=== PATIENT | male | born 1980 | race Two or more races ===

== ENCOUNTER 2022-02-13 11:45 | Emergency (ER) | payer OTHER ==
[~2022-02-13] VITALS: Ht 172.7 cm; Wt 113.6 kg
[2022-02-13 12:35] VITALS: BP 169/103
[2022-02-13] MEDS ORDERED: LABETALOL HCL 5 MG/ML 4ML SYRINGE IV ONE (12:45)
[2022-02-13 13:17] LABS: Basophils # (auto) 0 10 ^3/uL (0-0.2); Basophils % (auto) 0.5 % (0.0-2.0); Eosinophils # (auto) 0.1 10 ^3/uL (0-0.8); Eosinophils % (auto) 1.3 % (0.0-7.0); Hematocrit 45.8 % (41.0-53.0); Hemoglobin 15.2 g/dL (13.5-17.5); Lymphocytes # (auto) 1.5 10 ^3/uL (0.4-5.4); Lymphocytes % (auto) 18.4 % (10.0-50.0); Mean Corpuscular Hemoglobin 28.2 pg (28.0-32.0); Mean Corpuscular Hgb Conc. 33.1 g/dL (32.0-36.0); Mean Corpuscular Volume 85.2 fL (80.0-100.0); Monocytes # (auto) 0.4 10 ^3/uL (0-1.3); Monocytes % (auto) 5.1 % (0.0-12.0); Neutrophils # (auto) 6.1 10 ^3/uL (1.6-8.6); Neutrophils % (auto) 74.7 % (37.0-80.0); Nucleated Red Blood Cells % 0.1 %; Red Blood Cells 5.37 10^6/uL (4.5-5.90); Red Cell Distribution Width 12.9 % (11.8-14.3); White Blood Cell 8.2 10^3/uL (4.4-10.8)
[2022-02-13 13:29] LABS: Albumin 3.9 g/dL (3.4-5.0); Calcium 8.5 mg/dL (8.5-10.1); Potassium 3.1 mmol/L (3.5-5.1)
[2022-02-13 13:30] LABS: BUN/Creatinine Ratio 17.1
[2022-02-13 13:33] LABS: Bilirubin, Total 0.9 mg/dL (0.2-1.0); Total Protein 7.1 g/dL (6.4-8.2)
== END 2022-02-13 14:25 | disposition home or self-care (01) ==
LOC: ER 11:45 → EDBD 11:45 → ER 14:15
DX: T67.5XXA Heat exhaustion, unspecified, initial encounter (principal); I10 Essential (primary) hypertension; X58.XXXA Exposure to other specified factors, initial encounter
CPT/HCPCS: 36415; 71045; 80053; 83880; 84484; 85025; 93005; 96374; 99285; J3490

== ENCOUNTER 2024-08-11 08:26 | Inpatient (IN) | payer OTHER ==
[~2024-08-11] VITALS: Ht 172.7 cm; Wt 111.0 kg
--- NOTE | 2024-08-11 08:42 | ED.PDOC ---
History of Present Illness HPI Comments 43-year-old male came to the ER complaining of chest pain which started this morning 2:30 a.m.. He was sleeping when he started to the symptoms. Chest pain in the right side radiating to the right shoulder. He does history of hypotension CVA in 2017. Does take lisinopril amlodipine for his blood pressure. Blood pressure arrival was 176/115. Denies any past surgical history. Denies any other symptoms. Chief Complaint: Chest Pain Time Seen by MD: 08:38 Primary Care Provider: ROBYN Reviewed Notes: Nurses Notes, Medications, Allergies Allergies: Coded Allergies: NO KNOWN ALLERGIES (Unverified , 02/13/22) Home Meds Reported Medications Amlodipine Besylate (Amlodipine Besylate) 10 Mg Tab, 1 DAILY 08/11/24 Information Source: Patient Mode of Arrival: Ambulatory Severity: Moderate Timing: Hours Duration: Since onset Past Medical History PAST MEDICAL HISTORY: HTN Surgical History: Unknown Family History Family History: Unknown Social History Smoker: Unknown Alcohol: Unknown Drugs: Unknown Lives In: Unknown Constitutional: denies: chills, diaphoresis, fatigue, fever, malaise, sweats, weakness, others EENTM: denies: blurred vision, double vision, ear bleeding, ear discharge, ear drainage, ear pain, ear ringing, eye pain, eye redness, hearing loss, mouth pain, mouth swelling, nasal discharge, nose bleeding, nose congestion, nose pain, photophobia, tearing, throat pain, throat swelling, voice changes, others Respiratory: denies: cough, hemoptysis, orthopnea, SOB at rest, shortness of breath, SOB with excertion, stridor, wheezing, others Cardiovascular: reports: chest pain; denies: dizzy spells, diaphoresis, Dyspnea on exertion, edema, irregular heart beat, left arm pain, lightheadedness, palpitations, PND, syncope, others Gastrointestinal: denies: abdomen distended, abdominal pain, blood streaked bowels, constipated, diarrhea, dysphagia, difficulty swallowing, hematemesis, melena, nausea, poor appetite, poor fluid intake, rectal bleeding, rectal pain, vomiting, others Genitourinary: denies: burning, dysuria, flank pain, frequency, hematuria, incontinence, penile discharge, penile sore, pain, testicle pain, testicle swelling, urgency, others Neurological: denies: dizziness, fainting, headache, left sided numbness, left sided weakness, numbness, paresthesia, pre-existing deficit, right sided numbness, right sided weakness, seizure, speech problems, tingling, tremors, weakness, others Musculoskeletal: denies: back pain, gout, joint pain, joint swelling, muscle pain, muscle stiffness, neck pain, others Integumetry: denies: bruises, change in color, change in hair/nails, dryness, laceration, lesions, lumps, rash, wounds, others Allergic/Immunocompromised: denies: Difficulty Healing, Frequent Infections, Hives, Itching, others Hematologic/Lymphatic: denies: anemia, blood clots, easy bleeding, easy bruising, swollen glands, others Endocrine: denies: excessive hunger, excessive sweating, excessive thirst, excessive urination, flushing, intolerance to cold, intolerance to heat, unexplained weight gain, unexplained weight loss, others Psychiatric: denies: anxiety, bipolar disorder, depression, hopeless, panic disorder, schizophrenia, sleepless, suicidal, others Physical Exam General Appearance: Moderate Distress HEENT: Normal ENT Inspection, Pharynx Normal, TMs Normal Neck: Full Range of Motion, Non-Tender, Normal, Normal Inspection Respiratory: Chest Non-Tender, Lungs Clear, No Accessory Muscle Use, No Respiratory Distress, Normal Breath Sounds Cardiovascular: No Edema, No JVD, No Murmur, No Gallop, Normal Peripheral Pulses, Regular Rate/Rhythm Breast Exam: Deferred Gastrointestinal: No Organomegaly, Non Tender, No Pulsatile Mass, Normal Bowel Sounds, Soft Genitalia: Deferred Pelvic: Deferred Rectal: Deferred Extremities: No calf tenderness, Normal capillary refill, Normal inspection, Normal range of motion, Non-tender, No pedal edema Musculoskeletal : Apperance: Normal Neurologic: Alert, shoes hand sewer II-XII nml as Tested, No Motor Deficits, Normal Affect, Normal Mood, No Sensory Deficits Cerebellar Function: Normal Reflexes: Normal Skin: Dry, Normal Color, Warm Peripheral Pulses: 3+ Radial (R), 3+ Radial (L) Lymphatic: No Adenopathy Was a procedure done? Was a procedure done?: No Differential Dx Considerations may include: Stress induced Electrolyte imbalance X-Ray, Labs, Meds, VS Vital Signs Date Time Temp Pulse Resp B/P (MAP) Pulse Ox O2 Delivery O2 Flow Rate FiO2 2/28/25 12:47 74 16 95 Room Air 08/11/24 12:47 97.8 74 16 152/103 (119) 95 97.8 08/11/24 11:59 79 08/11/24 11:58 98.1 81 22 143/94 (110) 92 98.1 08/11/24 09:06 176/115 08/11/24 08:36 98.1 70 20 176/115 (135) 97 08/11/24 08:31 69 Lab Test 08/11/24 11:35 08/11/24 09:40 08/11/24 08:50 08/11/24 08:39 Range/Units Magnesium Level 2.3 1.6-2.6 mg/dL Troponin I High Sensitivity < 3 L < 3 L < 3 L </=54 ng/L Triglycerides Level 159 H < 150 mg/dL Cholesterol Level 178 < 200 mg/dL LDL Cholesterol 116 H < 100 mg/dL HDL Cholesterol 47 40-59 mg/dL Thyroid Stimulating Hormone (TSH) Pending Urine Color Pending Urine Clarity Pending Urine pH Pending Urine Specific [place] Pending Urine Protein Pending Urine Ketones Pending Urine Blood Pending Urine Nitrite Pending Urine Bilirubin Pending Urine Urobilinogen Pending Urine Leukocyte Esterase Pending Urine RBC Pending Urine Microscopic WBC Pending Urine Squamous Epithelial Cells Pending Urine Bacteria Pending Urine Glucose Pending Urine Opiates Screen Pending Urine Fentanyl Screen Pending Urine Barbiturates Screen Pending Urine Phencyclidine Screen Pending Urine Amphetamines Screen Pending Urine Benzodiazepines Screen Pending Urine Cocaine Screen Pending Urine Cannabinoids Screen Pending White Blood Count 6.2 4.4-10.8 10^3/uL Red Blood Count 5.86 4.5-5.90 10^6/uL Hemoglobin 17.3 13.5-17.5 g/dL Hematocrit 50.2 41.0-53.0 % Mean Corpuscular Volume 85.7 80.0-100.0 fL Mean Corpuscular Hemoglobin 29.6 28.0-32.0 pg Mean Corpuscular Hemoglobin Concent 34.5 32.0-36.0 g/dL Red Cell Distribution Width 12.8 11.8-14.3 % Platelet Count 231 140-450 10^3/uL Mean Platelet Volume 7.6 6.9-10.8 fL Neutrophils (%) (Auto) 68.8 37.0-80.0 % Lymphocytes (%) (Auto) 24.9 10.0-50.0 % Monocytes (%) (Auto) 4.4 0.0-12.0 % Eosinophils (%) (Auto) 1.4 0.0-7.0 % Basophils (%) (Auto) 0.5 0.0-2.0 % Neutrophils # (Auto) 4.3 1.6-8.6 10 ^3/uL Lymphocytes # (Auto) 1.5 0.4-5.4 10 ^3/uL Monocytes # (Auto) 0.3 0-1.3 10 ^3/uL Eosinophils # (Auto) 0.1 0-0.8 10 ^3/uL Basophils # (Auto) 0 0-0.2 10 ^3/uL Nucleated Red Blood Cells 0.7 % Sodium Level 140 136-145 mmol/L Potassium Level 3.4 L 3.5-5.1 mmol/L Chloride Level 104 98-107 mmol/L Carbon Dioxide Level 27 20-31 mmol/L Anion Gap 9 5-15 Blood Urea Nitrogen 11 9-23 mg/dL Creatinine 0.93 0.700-1.30 mg/dL Glomerular Filtration Rate Calc 104 >90 mL/min BUN/Creatinine Ratio 11.8 10.0-20.0 Serum Glucose 100 74-106 mg/dL Hemoglobin A1c 5.0 <5.7 % A1C Calcium Level 10.3 8.7-10.4 mg/dL Current Medications Medications (Trade) Dose Ordered Sig/Carlos Alberto Route Start Time Stop Time Status Last Admin Lorazepam (Ativan Tablet) 1 mg ONCE ONCE PO 08/11/24 08:45 08/11/24 08:46 DC 08/11/24 09:07 Aspirin 325 mg ONCE ONCE PO 08/11/24 08:45 08/11/24 08:46 DC 08/11/24 09:06 Amlodipine Besylate (Norvasc Tablet) 5 mg ONCE ONCE PO 08/11/24 09:00 08/11/24 09:01 DC 08/11/24 09:06 Potassium Chloride (Klor-Con Tablet) 20 meq ONCE ONCE PO 08/11/24 13:30 08/11/24 13:44 DC 08/11/24 13:53 Patient alert. Complaining of chest pain. Blood pressure elevated. Saturation pristine on room air. Was given amlodipine. EKG reviewed does not show any acute changes. Denies perspiration. Reviewed his history. Explained to the patient. Continue monitoring. [place] approved inpatient admission [id number]. Time of 1ST Reevaluation: 08:40 Reevaluation 1ST: Unchanged Patient Education/Counseling: Diagnosis, Treatment, Prognosis Family Education/Counseling: No Family Present Departure 1 Departure Time of Disposition: 08:41 Impression: Primary Impression: Chest pain of unknown etiology Additional Impression: Hypertensive emergency Disposition: ADMITTED INPATIENT Admit to: Med Surg Condition: Guarded Critical Care Note Critical Care Time?: Yes (45 min-critical care time only) Critical care comment: Extremely high blood pressure Stability Stability form required: No Heart Score Heart Score: Heart Score Response (Comments) Value History Slightly Suspicious 0 EKG Normal 0 Age <45 0 Risk Factors 1 or 2 risk factors 1 Troponin Normal limit 0 Total 1 PHOEBE PITT MD Aug 11, 2024 08:42
[2024-08-11] MEDS: amLODIPine BESYLATE 5 MG TAB PO ONE (09:06)
[2024-08-11] MEDS: ASPirin 325 MG TAB PO ONE (09:06)
[2024-08-11 09:07] LABS: Basophils # (auto) 0 10 ^3/uL (0-0.2); Basophils % (auto) 0.5 % (0.0-2.0); Eosinophils # (auto) 0.1 10 ^3/uL (0-0.8); Eosinophils % (auto) 1.4 % (0.0-7.0); Hematocrit 50.2 % (41.0-53.0); Hemoglobin 17.3 g/dL (13.5-17.5); Lymphocytes # (auto) 1.5 10 ^3/uL (0.4-5.4); Lymphocytes % (auto) 24.9 % (10.0-50.0); Mean Corpuscular Hemoglobin 29.6 pg (28.0-32.0); Mean Corpuscular Hgb Conc. 34.5 g/dL (32.0-36.0); Mean Corpuscular Volume 85.7 fL (80.0-100.0); Monocytes # (auto) 0.3 10 ^3/uL (0-1.3); Monocytes % (auto) 4.4 % (0.0-12.0); Neutrophils # (auto) 4.3 10 ^3/uL (1.6-8.6); Neutrophils % (auto) 68.8 % (37.0-80.0); Nucleated Red Blood Cells % 0.7 %; Platelet Count (auto) 231 10^3/uL (140-450); Red Blood Cells 5.86 10^6/uL (4.5-5.90); Red Cell Distribution Width 12.8 % (11.8-14.3); White Blood Cell 6.2 10^3/uL (4.4-10.8)
[2024-08-11] MEDS: LORazepam 0.5 MG TAB PO ONE (09:07)
[2024-08-11 09:11] LABS: Chloride 104 mmol/L (98-107); Sodium 140 mmol/L (136-145)
[2024-08-11 09:12] LABS: Anion Gap 9 (5-15); Carbon Dioxide 27 mmol/L (20-31)
[2024-08-11 09:13] LABS: Calcium 10.3 mg/dL (8.7-10.4)
[2024-08-11 09:17] LABS: BUN/Creatinine Ratio 11.8 (10.0-20.0); Blood Urea Nitrogen 11 mg/dL (9-23); Glucose 100 mg/dL (74-106)
[2024-08-11 09:18] LABS: Potassium 3.4 mmol/L (3.5-5.1)
[2024-08-11] MEDS: POTASSIUM CHL 20 Meq TABLET PO ONE (13:53)
[2024-08-11] MEDS ORDERED: NITROGLYCERIN 0.4 MG SL TAB SL PRN ×2 (14:45)
[2024-08-11] MEDS ORDERED: MORPHINE SULFATE INJ 2 MG/ml SYRG IV PRN (14:45)
[2024-08-11] MEDS ORDERED: ONDANSETRON HCL 4 MG/2 ML VIAL IV PRN (14:45)
[2024-08-11] MEDS ORDERED: MORPHINE SULFATE 4 MG/ML SYR/VIAL IV PRN (14:45)
[2024-08-11] MEDS ORDERED: ACETAMINOPHEN 325 MG TAB PO PRN (14:45)
[2024-08-11] MEDS ORDERED: AMLO1TAB23 (14:45)
--- NOTE | 2024-08-11 14:47 | DVHHP2 ---
History of Present Illness Reason for Visit: Chest pain History of Present Illness Kush Mc is a 43-year-old male with past medical history of hypertension, CVA in 2017 with no deficits, right shoulder rotator cuff surgery, and left knee meniscus surgery who presents to the ED with chest pain that radiates over to his right shoulder. Patient reports that the pain is in his right chest area with pain being dull 5/10 and constant. Patient denies any recent trauma or injury, recent illnesses, recent sick contacts, fever, chills, lightheadedness, dizziness, shortness of breath, abdominal pain, nausea, vomiting, and diarrhea. Patient reports that there are no triggering or relieving factors. Cardiovascular: HTN [employer]: CVA Past Surgical History: Other (Right shoulder rotator cuff surgery and left knee meniscus surgery) Family History: DM, Other (Mom with diabetes) Smoke: No ALCOHOL: none Drugs: None Lives: with Family Domestic Violence: Neg Review of Systems Cardiovascular: Chest Pain Musculoskeletal: shoulder pain Allergies: Coded Allergies: NO KNOWN ALLERGIES (Unverified , 02/13/22) Exam Vital Signs Vital Signs Date Time Temp Pulse Resp B/P (MAP) Pulse Ox O2 Delivery O2 Flow Rate FiO2 08/11/24 12:47 74 16 95 Room Air 08/11/24 12:47 97.8 152/103 (119) 97.8 General Appearance: Alert, Oriented X3, Cooperative, No acute distress HEENT: Atraumatic, PERRLA, EOMI, Mucous membr. moist/pink Respiratory: Normal air movement Cardiovascular: Regular rate, Normal S1, Normal S2, No murmurs Abdominal: Normal bowel sounds, Soft, No tenderness, No hepatospenomegaly, No masses Extremities: No clubbing, No cyanosis, No edema, Normal pulses, No tenderness/swelling Skin: No rashes, No breakdown, No significant lesion Neuro: Normal gait, Normal speech, Strength at 5/5 X4 ext, Normal tone, Sensation intact Psych/Mental Status: Mental status NL, Mood NL Labs/Xrays Labs Test 08/11/24 11:35 08/11/24 08:39 Range/Units Troponin I High Sensitivity < 3 L </=54 ng/L White Blood Count 6.2 4.4-10.8 10^3/uL Red Blood Count 5.86 4.5-5.90 10^6/uL Hemoglobin 17.3 13.5-17.5 g/dL Hematocrit 50.2 41.0-53.0 % Mean Corpuscular Volume 85.7 80.0-100.0 fL Mean Corpuscular Hemoglobin 29.6 28.0-32.0 pg Mean Corpuscular Hemoglobin Concent 34.5 32.0-36.0 g/dL Red Cell Distribution Width 12.8 11.8-14.3 % Platelet Count 231 140-450 10^3/uL Mean Platelet Volume 7.6 6.9-10.8 fL Neutrophils (%) (Auto) 68.8 37.0-80.0 % Lymphocytes (%) (Auto) 24.9 10.0-50.0 % Monocytes (%) (Auto) 4.4 0.0-12.0 % Eosinophils (%) (Auto) 1.4 0.0-7.0 % Basophils (%) (Auto) 0.5 0.0-2.0 % Neutrophils # (Auto) 4.3 1.6-8.6 10 ^3/uL Lymphocytes # (Auto) 1.5 0.4-5.4 10 ^3/uL Monocytes # (Auto) 0.3 0-1.3 10 ^3/uL Eosinophils # (Auto) 0.1 0-0.8 10 ^3/uL Basophils # (Auto) 0 0-0.2 10 ^3/uL Nucleated Red Blood Cells 0.7 % Sodium Level 140 136-145 mmol/L Potassium Level 3.4 L 3.5-5.1 mmol/L Chloride Level 104 98-107 mmol/L Carbon Dioxide Level 27 20-31 mmol/L Anion Gap 9 5-15 Blood Urea Nitrogen 11 9-23 mg/dL Creatinine 0.93 0.700-1.30 mg/dL Glomerular Filtration Rate Calc 104 >90 mL/min BUN/Creatinine Ratio 11.8 10.0-20.0 Serum Glucose 100 74-106 mg/dL Calcium Level 10.3 8.7-10.4 mg/dL Assessment/Plan Assessment/Plan Assessment Chest pain rule out ACS Hypokalemia History of hypertension History of CVA in 2017 with no deficits History of right shoulder rotator cuff surgery History of left knee meniscus surgery Plan Admit to [facility] Antihypertensive Aspirin Benzos EKG Troponin negative x3 Replete lytes UA TSH Lipid panel A1c UDS Echo Mag level Mag IV ordered Chest x-ray ordered Antiemetics Pain management Home medications reconciled Diet Plan discussed with: Patient My Orders Orders - STUART FINLEYP Procedure Category Date Status Time Thyroid Stimulating LAB 08/11/24 In Process Hormone 13:24 Drug Screen LAB 08/11/24 Logged 13:24 Urinalysis LAB 08/11/24 Logged 13:24 Lipid Panel LAB 08/11/24 In Process 13:24 Echo 2d Mode Cardiac US 08/11/24 Logged DOP 13:24 Hemoglobin A1c LAB 08/11/24 In Process 13:26 Admit ADMIT 08/11/24 Transmitted 14:33 Code Status CODE 08/11/24 Transmitted 14:33 Vital Signs SUN[facility] 08/11/24 Transmitted 14:33 Crusher Assembler [facility] 08/11/24 Transmitted 14:33 Cardiac DIET 08/11/24 Transmitted Diet-2gna,Lofat,Lochol Dinner Aspirin Tablet PHA 08/12/24 Transmitted 10:00 Lipitor 40mg Hs PHA 08/11/24 Transmitted Hi-Intensity 22:00 Morphine Sulfate [facility] 08/11/24 Transmitted Injection 14:45 Acetaminophen Tablet [facility] 08/11/24 Transmitted (Tylenol Tablet) 14:45 Complete Blood Count LAB 08/12/24 Verified 04:00 Basic Metabolic Panel LAB 08/12/24 Verified 04:00 Nitroglycerin [facility] 08/11/24 Transmitted Sublingual (Ntrostat 14:45 Ondansetron Hcl [facility] 08/11/24 Transmitted (Zofran) 14:45 Electrocardigram EKG 08/12/24 Transmitted 04:00 Troponin-I Hs LAB 08/11/24 Transmitted 14:33 Cardiac [facility] 08/11/24 Transmitted Rehabilitation - Outpa Nitroglycerin [facility] 08/11/24 Transmitted Sublingual (Ntrostat 14:45 Morphine Sulfate PHA 08/11/24 Transmitted Injection 14:45 Stat Ekg For Chest [facility] 08/11/24 Transmitted Pain 14:33 Notify Md Of Changes [facility] 08/11/24 Transmitted From Base 14:33 Archivist Political History For [facility] 08/11/24 Transmitted 24 Hours 14:33 Emergency Dysrhythmia [facility] 08/11/24 Transmitted Protocol 14:33 Rhythm Strips Once [facility] 08/11/24 Transmitted Every Shift 14:33 Oxygen By Nasal RT 08/11/24 Transmitted Cannula 14:33 Magnesium LAB 08/11/24 Transmitted 14:33 Magnesium Carlos PHA 08/11/24 Transmitted 14:45 Date of Service: Aug 11, 2024 Billing Provider: STUART FINLEY Common Visit Codes: [id number] INP/OBS CARE (HIGH) STUART FINLEY Aug 11, 2024 14:47
[2024-08-11 14:58] VITALS: PULSE 79; RESP 19; O2SAT 95
[2024-08-11 15:00] LABS: Cholesterol 178 mg/dL (< 200); HDL Cholesterol 47 mg/dL (40-59)
[2024-08-11 15:01] LABS: LDL Cholesterol 116 mg/dL (< 100); Triglycerides 159 mg/dL (< 150)
--- NOTE | 2024-08-11 15:02 | DVH ---
CHEST RADIOGRAPH Indication: cp Technique: Single frontal view of the chest was obtained Comparison: CHEST PORTABLE on DOS: 02/13/22, CXRP on DOS: 02/13/22 FINDINGS: Lines and Tubes: None Lungs: No focal consolidation. Pleura: No effusion. No pneumothorax. Cardiomediastinal contours: Unremarkable Bones: No acute osseous abnormality. IMPRESSION: 1. No acute cardiopulmonary disease. HS:Y
[2024-08-11 15:23] LABS: Urine Bacteria None Seen /hpf (None Seen)
[2024-08-11 15:49] LABS: Urine Blood Negative /uL (Negative); Urine Clarity Clear (Clear); Urine Color Colorless (Yellow); Urine Protein, UAD Negative (Negative); Urine Specific Gravity 1.007 (1.001-1.035); Urine Squamous Epithelial Cell None Seen /hpf (<5); Urine Urobilinogen Normal (Negative); Urine pH 5.5 (5.0-9.0)
[2024-08-11 16:04] LABS: Amphetamine Screen, Urine Neg (NEGATIVE); Barbiturate Scree,Urine Neg (NEGATIVE); Benzodiazephine Screen, Urine Neg (NEGATIVE); Cannabinoid Screen, Urine Neg (NEGATIVE); Cocaine Screen, Urine Neg (NEGATIVE); Opiate Scree,Urine Neg (NEGATIVE); Phencyclidine Screen, Urine Neg (NEGATIVE)
[2024-08-11] MEDS: MAGNESIUM SULFATE 1GM/100ML 100 ML IV ONE (21:09)
[2024-08-11] MEDS: ATORVASTATIN 20 MG TAB PO SCH (23:47)
[2024-08-12] VITALS (9 sets, daily range): BP systolic 112–135; BP diastolic 66–84; PULSE 67–80; RESP 16–20; TEMP 97.7–98; O2SAT 93–97
[2024-08-12 06:44] LABS: Basophils # (auto) 0 10 ^3/uL (0-0.2); Basophils % (auto) 0.5 % (0.0-2.0); Eosinophils # (auto) 0.2 10 ^3/uL (0-0.8); Eosinophils % (auto) 2.1 % (0.0-7.0); Hematocrit 45.3 % (41.0-53.0); Hemoglobin 15.9 g/dL (13.5-17.5); Lymphocytes # (auto) 1.7 10 ^3/uL (0.4-5.4); Lymphocytes % (auto) 23.4 % (10.0-50.0); Mean Corpuscular Hemoglobin 30.1 pg (28.0-32.0); Mean Corpuscular Volume 85.8 fL (80.0-100.0); Monocytes # (auto) 0.4 10 ^3/uL (0-1.3); Monocytes % (auto) 5.6 % (0.0-12.0); Neutrophils # (auto) 4.8 10 ^3/uL (1.6-8.6); Neutrophils % (auto) 68.4 % (37.0-80.0); Nucleated Red Blood Cells % 0.2 %; Platelet Count (auto) 232 10^3/uL (140-450); Red Blood Cells 5.28 10^6/uL (4.5-5.90); Red Cell Distribution Width 13.1 % (11.8-14.3); White Blood Cell 7.1 10^3/uL (4.4-10.8)
[2024-08-12 07:01] LABS: Anion Gap 8 (5-15); Carbon Dioxide 26 mmol/L (20-31); Chloride 106 mmol/L (98-107); Potassium 3.5 mmol/L (3.5-5.1); Sodium 140 mmol/L (136-145)
[2024-08-12 07:02] LABS: Calcium 9.5 mg/dL (8.7-10.4)
[2024-08-12 07:07] LABS: Blood Urea Nitrogen 16 mg/dL (9-23); Glucose 93 mg/dL (74-106)
[2024-08-12] MEDS: ASPirin 81 mg TAB PO SCH (09:39)
[2024-08-12] MEDS: LISINOPRIL 20 MG TAB PO SCH (09:39)
--- NOTE | 2024-08-12 14:00 | DVHPN2 ---
Cardiovascular: Chest Pain Musculoskeletal: shoulder pain Objective Vitals Vital Signs Date Time Temp Pulse Resp B/P (MAP) Pulse Ox O2 Delivery O2 Flow Rate FiO2 08/12/24 13:00 98.0 84 13 129/97 (108) 95 98.0 08/12/24 08:00 Room Air* 0 21 Medications Current Medications Medications Dose Ordered Sig/Carlos Alberto Route Start Time Stop Time Status Last Admin Dose Admin Aspirin 81 mg DAILY PO 08/12/24 10:00 08/12/24 09:39 81 MG Atorvastatin Calcium 40 mg HS PO 08/11/24 22:00 08/11/24 23:47 40 MG Morphine Sulfate 2 mg Q30MP PRN IV 08/11/24 14:45 Cancel Acetaminophen 650 mg Q6HP PRN PO 08/11/24 14:45 Nitroglycerin 0.4 mg Q5MINP PRN SL 08/11/24 14:45 Cancel Ondansetron HCl 4 mg Q4HP PRN IV 08/11/24 14:45 Nitroglycerin 0.4 mg Q5MINP PRN SL 08/11/24 14:45 Morphine Sulfate 2 mg Q30M PRN IV 08/11/24 14:45 Lisinopril 20 mg DAILY PO 08/12/24 10:00 08/12/24 09:39 20 MG Laboratory Results Laboratory Tests 08/12/24 05:50 Chemistry Test 08/12/24 05:50 Calcium Level 9.5 mg/dL (8.7-10.4) Urinalysis Test 08/11/24 08:50 Urine Color Colorless (Yellow) Urine Clarity Clear (Clear) Urine pH 5.5 (5.0-9.0) Urine Specific [place] 1.007 (1.001-1.035) Urine Protein Negative (Negative) Urine Ketones Negative (Negative) Urine Blood Negative /uL (Negative) Urine Nitrite Negative (Negative) Urine Bilirubin Negative (Negative) Urine Urobilinogen Normal mg/dL (Negative) Urine Leukocyte Esterase Negative /uL (Negative) Urine RBC 2 /hpf (0 - 3) Urine Microscopic WBC /HPF (0-3) Urine Squamous Epithelial Cells None seen /hpf (<5) Urine Bacteria None seen /hpf (None Seen) Urine Glucose Normal mg/dL (Normal) TORREY CHAMBERS MD Aug 12, 2024 14:00
--- NOTE | 2024-08-12 14:41 | DVHSR ---
APPROVED REPORT DIMENSIONS LVDd4.8 (3.8-5.7cm)LA (2D)4.4 (1.9-4.0cm)Aortic Root3.4 (2.0-3.7cm) LVDs3.1 (2.5-4.0cm)LA (MM) (1.9-4.0cm)Aortic Cusp Exc1.9 (1.5-2.0cm) EF (%) 64.0 (55-70%)Rt. Atrium4.8 (1.9-4.0cm)Asc. Aorta cm IVSd1.2 (0.7-1.1cm)RV (D) (1.8-2.4cm) PWd1.1 (0.7-1.1cm) Mitral Valve MitralMitral Stenosis E wave0.60m/sMV Mean GR.mmHg A wave0.60m/sMV Peak GR.mmHg E/A ratio1.02D MVAcm2 Aortic Valve Aortic ValveAortic Stenosis V11.00m/Ari Mean GR.4mmHg V21.20m/Ari Peak GR.7mmHg LVOT Diameter2.4 (1.8-2.4cm)Doppler AVA3.77cm2 Other Information Quality : Technically LimitedRhythm : Technically limited study due to body habitus. Conclusion Concentric LVH. B iatrial enlargement. Mild aortic root enlargement. Valves are normal. Left ventricular function is preserved at 60% with normal RV function. Dopplers unremarkable. No pericardial effusion masses or vegetations.
[2024-08-12] MEDS ORDERED: HYDR12.59 PO (15:41)
[2024-08-12] MEDS ORDERED: LISI10TA34 PO (15:41)
[2024-08-12] MEDS ORDERED: SEMA1INJ2 SC (15:41)
[2024-08-12] MEDS ORDERED: ATOR20TA PO (15:41)
[2024-08-13 01:00] VITALS: BP 113/72; PULSE 70; RESP 16; TEMP 98.1; O2SAT 94
[2024-08-13 05:00] VITALS: BP 124/74; PULSE 62; RESP 18; TEMP 97.9; O2SAT 96
[2024-08-13 06:00] VITALS: O2SAT 96
[2024-08-13 08:00] VITALS: PULSE 81
[2024-08-13 09:00] VITALS: BP 129/90; PULSE 77; RESP 20; TEMP 97.5; O2SAT 94
[2024-08-13] MEDS ORDERED: LISI20TA56 PO (11:49)
[2024-08-13] MEDS ORDERED: HYDR12.59 PO (11:53)
--- NOTE | 2024-08-13 11:55 | DVHDS2 ---
Discharge Summary Date of Admission Aug 11, 2024 at 14:33 Date of Discharge: Aug 13, 2024 Labs/Diagnostic Data: Laboratory Results Test 08/12/24 05:50 08/11/24 11:35 08/11/24 08:50 08/11/24 08:39 White Blood Count 7.1 10^3/uL (4.4-10.8) Red Blood Count 5.28 10^6/uL (4.5-5.90) Hemoglobin 15.9 g/dL (13.5-17.5) Hematocrit 45.3 % (41.0-53.0) Mean Corpuscular Volume 85.8 fL (80.0-100.0) Mean Corpuscular Hemoglobin 30.1 pg (28.0-32.0) Mean Corpuscular Hemoglobin Concent 35.0 g/dL (32.0-36.0) Red Cell Distribution Width 13.1 % (11.8-14.3) Platelet Count 232 10^3/uL (140-450) Mean Platelet Volume 7.5 fL (6.9-10.8) Neutrophils (%) (Auto) 68.4 % (37.0-80.0) Lymphocytes (%) (Auto) 23.4 % (10.0-50.0) Monocytes (%) (Auto) 5.6 % (0.0-12.0) Eosinophils (%) (Auto) 2.1 % (0.0-7.0) Basophils (%) (Auto) 0.5 % (0.0-2.0) Neutrophils # (Auto) 4.8 10 ^3/uL (1.6-8.6) Lymphocytes # (Auto) 1.7 10 ^3/uL (0.4-5.4) Monocytes # (Auto) 0.4 10 ^3/uL (0-1.3) Eosinophils # (Auto) 0.2 10 ^3/uL (0-0.8) Basophils # (Auto) 0 10 ^3/uL (0-0.2) Nucleated Red Blood Cells 0.2 % Sodium Level 140 mmol/L (136-145) Potassium Level 3.5 mmol/L (3.5-5.1) Chloride Level 106 mmol/L (98-107) Carbon Dioxide Level 26 mmol/L (20-31) Anion Gap 8 (5-15) Blood Urea Nitrogen 16 mg/dL (9-23) Creatinine 1.00 mg/dL (0.700-1.30) Glomerular Filtration Rate Calc 96 mL/min (>90) BUN/Creatinine Ratio 16.0 (10.0-20.0) Serum Glucose 93 mg/dL (74-106) Calcium Level 9.5 mg/dL (8.7-10.4) Magnesium Level 2.3 mg/dL (1.6-2.6) Troponin I High Sensitivity < 3 ng/L (</=54) Triglycerides Level 159 mg/dL (< 150) Cholesterol Level 178 mg/dL (< 200) LDL Cholesterol 116 mg/dL (< 100) HDL Cholesterol 47 mg/dL (40-59) Thyroid Stimulating Hormone (TSH) 1.01 uIU/mL (0.55-4.78) Urine Color Colorless (Yellow) Urine Clarity Clear (Clear) Urine pH 5.5 (5.0-9.0) Urine Specific [place] 1.007 (1.001-1.035) Urine Protein Negative (Negative) Urine Ketones Negative (Negative) Urine Blood Negative /uL (Negative) Urine Nitrite Negative (Negative) Urine Bilirubin Negative (Negative) Urine Urobilinogen Normal mg/dL (Negative) Urine Leukocyte Esterase Negative /uL (Negative) Urine RBC 2 /hpf (0 - 3) Urine Microscopic WBC /HPF (0-3) Urine Squamous Epithelial Cells None seen /hpf (<5) Urine Bacteria None seen /hpf (None Seen) Urine Glucose Normal mg/dL (Normal) Urine Opiates Screen Neg (NEGATIVE) Urine Fentanyl Screen Neg (NEGATIVE) Urine Barbiturates Screen Neg (NEGATIVE) Urine Phencyclidine Screen Neg (NEGATIVE) Urine Amphetamines Screen Neg (NEGATIVE) Urine Benzodiazepines Screen Neg (NEGATIVE) Urine Cocaine Screen Neg (NEGATIVE) Urine Cannabinoids Screen Neg (NEGATIVE) Hemoglobin A1c 5.0 % A1C (<5.7) Other Laboratory Tests 08/12/24 05:50 Final Diagnosis/Problems List HTN urgency Discharge Disposition: Home Discharge Instruct/Medications Diet: Cardiac 2g Na,low cholest Activity: No Restrictions, As Tolerated Follow Up/Referral: PCP 1-2 weeks Medications: Resume home meds New med: Lisinopril 20mg daily HTCZ 12.5mg daily Discharge Statement: "Patient was advised to return to the ER or call 911 if any headaches, dizziness, shortness of breath, chest pain, abdominal pain, bleeding, fevers, or worsening of medical condition. Patient was counseled about treatment plan, medications, possible side effects, patientverbalized understanding. All questions were answered to the best of my ability. This discharge took greater then 30 minutes in planning, reviewing documentation, counseling the patient, and discussing with other team members." ASSESSMENT ASSESSMENT Assessment HTN urgency TORREY CHAMBERS MD Aug 13, 2024 11:55
--- NOTE | 2024-08-13 12:29 | DVHINCON2 ---
Date Seen: Aug 13, 2024 Referring Physician MD Alexandra Reason for Consultation Chest pain History of Present Illness This is a pleasant 43-year-old man who presented to the emergency room with a chief complaint of chest pain since 2:30 a.m. The patient reports the pain awoke him from sleep and described it as substernal, nonradiating, non provoked, and sharp in nature. Upon arrival to the emergency room he was found with a systolic blood pressure in the 170s mmHg. States he is compliant with his medical therapy at home including lisinopril 20 mg q.d. and hydrochlorothiazide 25 mg q.d. He believes his blood pressure is high secondary to stress. At time of assessment, he denied any further chest pain. He underwent a 12 lead electrocardiogram revealing a normal sinus rhythm. He underwent a transthoracic echocardiogram revealing an LVEF of 60%. Serial troponin levels are negative. Significant medical history includes hypertension, TIA in 2017, dyslipidemia, and obesity. Past Medical History Past medical history reviewed. No other significant than mentioned above. Past Surgical History Past surgical history reviewed. No other significant than mentioned above. Family History: Cardiovascular disease MATERNAL GRANDFATHER Diabetes mellitus MATERNAL GRANDMOTHER Family History Family history reviewed. Social History Denies the use of illicit drugs, alcohol, or tobacco use. Allergies: Coded Allergies: NO KNOWN ALLERGIES (Unverified , 02/13/22) Home Meds Active Scripts Hydrochlorothiazide (Hydrochlorothiazide) 12.5 Mg Cap, 12.5 MG PO DAILY for 30 Days, #90 MG Prov:TORREY CHAMBERS MD 08/13/24 Lisinopril (Lisinopril) 20 Mg Tab, 20 MG PO DAILY, #30 TAB 5 Refills Prov:TORREY CHAMBERS MD 08/13/24 Reported Medications Semaglutide (Ozempic) 8 Mg/3 Ml Inj, 8 MG SC, INJ 08/12/24 Atorvastatin Calcium (Lipitor) 20 Mg Tab, 1 TAB PO DAILY, #90 TAB 1 Refill 08/12/24 Lisinopril (Lisinopril) 10 Mg Tab, 10 MG PO DAILY for 30 Days, MG 08/12/24 Amlodipine Besylate (Amlodipine Besylate) 10 Mg Tab, 1 DAILY 08/11/24 Home Meds Home medications reviewed. Review of Systems Constitutional: No symptom reported Ears, Nose, & Throat: No symptom reported Eyes: No symptom reported Neurological: No symptoms reported Pulmonary/Respiratory: No symptom reported Cardiovascular: Chest pain Gastrointestinal: No symptom reported Genitourinary: No symptom reported Musculoskeletal: No symptom reported Skin: No symptom reported Psychiatric: No symptom reported Endocrine: No symptom reported Hemotologic/Lymphatic: No symptom reported Vital Signs Vital Signs Date Time Temp Pulse Resp B/P (MAP) Pulse Ox O2 Delivery O2 Flow Rate FiO2 08/13/24 09:15 129/90 08/13/24 09:00 97.5 77 20 94 97.5 08/13/24 06:00 Room Air* 0 21 Physical Exam General Appearance: Cooperative. Well developed. Obese. In no acute distress Head Exam: Normal inspection Neck Exam: Normal inspection. Non-tender. Normal alignment Pulmonary/Respiratory: Chest non-tender. Clear bilateral breath sounds Cardiovascular/Chest: Regular rate and rhythm. S1, S2. Sinus rhythm. No murmurs. No JVD. Peripheral Pulses: 2+ Radial (R). 2+ Radial (L). 2+ Pedal (R). 2+ Pedal (L) Abdominal Exam: Normal bowel sounds. Soft. Nontender. No hepatospenomegaly. No masses Ankle Exam: Negative ankle edema Lower extremities: Negative lower extremity edema Neuro/Mental Status: A&O x4. Coherent Thoughts/Psych: Normal thought pattern. Appropriate mood and affect. Good judgement and insight Appearance: In no acute distress Skin Exam: Normal inspection. Normal color. Warm. Dry Labs/Diagnostic Data Labs Test 08/12/24 05:50 08/11/24 11:35 08/11/24 08:50 08/11/24 08:39 Range/Units White Blood Count 7.1 4.4-10.8 10^3/uL Red Blood Count 5.28 4.5-5.90 10^6/uL Hemoglobin 15.9 13.5-17.5 g/dL Hematocrit 45.3 41.0-53.0 % Mean Corpuscular Volume 85.8 80.0-100.0 fL Mean Corpuscular Hemoglobin 30.1 28.0-32.0 pg Mean Corpuscular Hemoglobin Concent 35.0 32.0-36.0 g/dL Red Cell Distribution Width 13.1 11.8-14.3 % Platelet Count 232 140-450 10^3/uL Mean Platelet Volume 7.5 6.9-10.8 fL Neutrophils (%) (Auto) 68.4 37.0-80.0 % Lymphocytes (%) (Auto) 23.4 10.0-50.0 % Monocytes (%) (Auto) 5.6 0.0-12.0 % Eosinophils (%) (Auto) 2.1 0.0-7.0 % Basophils (%) (Auto) 0.5 0.0-2.0 % Neutrophils # (Auto) 4.8 1.6-8.6 10 ^3/uL Lymphocytes # (Auto) 1.7 0.4-5.4 10 ^3/uL Monocytes # (Auto) 0.4 0-1.3 10 ^3/uL Eosinophils # (Auto) 0.2 0-0.8 10 ^3/uL Basophils # (Auto) 0 0-0.2 10 ^3/uL Nucleated Red Blood Cells 0.2 % Sodium Level 140 136-145 mmol/L Potassium Level 3.5 3.5-5.1 mmol/L Chloride Level 106 98-107 mmol/L Carbon Dioxide Level 26 20-31 mmol/L Anion Gap 8 5-15 Blood Urea Nitrogen 16 9-23 mg/dL Creatinine 1.00 0.700-1.30 mg/dL Glomerular Filtration Rate Calc 96 >90 mL/min BUN/Creatinine Ratio 16.0 10.0-20.0 Serum Glucose 93 74-106 mg/dL Calcium Level 9.5 8.7-10.4 mg/dL Magnesium Level 2.3 1.6-2.6 mg/dL Troponin I High Sensitivity < 3 L </=54 ng/L Triglycerides Level 159 H < 150 mg/dL Cholesterol Level 178 < 200 mg/dL LDL Cholesterol 116 H < 100 mg/dL HDL Cholesterol 47 40-59 mg/dL Thyroid Stimulating Hormone (TSH) 1.01 0.55-4.78 uIU/mL Urine Color Colorless Yellow Urine Clarity Clear Clear Urine pH 5.5 5.0-9.0 Urine Specific [place] 1.007 1.001-1.035 Urine Protein Negative Negative Urine Ketones Negative Negative Urine Blood Negative Negative /uL Urine Nitrite Negative Negative Urine Bilirubin Negative Negative Urine Urobilinogen Normal Negative mg/dL Urine Leukocyte Esterase Negative Negative /uL Urine RBC 2 0 - 3 /hpf Urine Microscopic WBC 0-3 /HPF Urine Squamous Epithelial Cells None seen <5 /hpf Urine Bacteria None seen None Seen /hpf Urine Glucose Normal Normal mg/dL Urine Opiates Screen Neg NEGATIVE Urine Fentanyl Screen Neg NEGATIVE Urine Barbiturates Screen Neg NEGATIVE Urine Phencyclidine Screen Neg NEGATIVE Urine Amphetamines Screen Neg NEGATIVE Urine Benzodiazepines Screen Neg NEGATIVE Urine Cocaine Screen Neg NEGATIVE Urine Cannabinoids Screen Neg NEGATIVE Hemoglobin A1c 5.0 <5.7 % A1C Assessment Chest pain in the setting of hypertensive urgency Dyslipidemia HX of TIA Obesity Plan/Recommendation (Dr. Novoa) The patient who presented with chest pain in the setting of hypertensive urgency denies any further symptoms. He underwent a 12 lead electrocardiogram without evidence of ischemia, serial troponin levels are negative, and a transthoracic echocardiogram revealing an LVEF of 60% with normal RV function. We recommend aggressive blood pressure control. Consider BP log and take to PCP. There is no further cardiac workup indicated at this time. Thank you for allowing us to participate in this patient's care. Please call if you have any questions or concerns. This medical document was created using an electronic medical record system with voice recognition software and computerized dictation system. Although this document has been carefully reviewed, there might still be some phonetic and typographical errors. Occasional wrong-word or ``sound-alike substitutions may have occurred due to the inherent limitations of voice recognition software. These areas are purely typographical due to imperfections of the software programs and do not reflect any compromise in the patient's medical care. Please read the chart carefully and recognize, using context, where these substitutions have occurred. Plan discussed with: Patient, Other (Mother, primary RN) NYHA Physical activity limitations: NA Date of Service: Aug 13, 2024 Billing Provider: LYUBOV ROLDAN Cardiology Common Codes: 25813-YCWIUCX INP/OBS CARE (High) LYUBOV ROLDAN Aug 13, 2024 12:29
[2024-08-13 13:00] VITALS: BP 134/97; PULSE 67; RESP 16; TEMP 97.8; O2SAT 91
== END 2024-08-13 14:00 | disposition home or self-care (01) | DRG 305 ==
LOC: ER 08:26 → OVERFLOW 14:33 → TELE-CENTR 08-12 15:09
DX: I16.1 Hypertensive emergency (principal); E87.6 Hypokalemia; I10 Essential (primary) hypertension; E66.9 Obesity, unspecified; Z68.37 Body mass index [BMI] 37.0-37.9, adult; E78.5 Hyperlipidemia, unspecified; Z82.49 Family history of ischemic heart disease and other diseases of the circulatory system; Z83.3 Family history of diabetes mellitus; Z86.73 Personal history of transient ischemic attack (TIA), and cerebral infarction without residual deficits; Z79.899 Other long term (current) drug therapy
CPT/HCPCS: 36415; 71045; 80048; 80061; 80307; 81001; 83036; 83735; 84443; 84484; 85025; 93306; 94660; 99291; G0378